=== PATIENT | male | born 1960 | race Caucasian/White ===

== ENCOUNTER 2019-03-05 22:00 | Emergency (ER) | payer MEDICARE, MEDICAID ==
[~2019-03-05] VITALS: Ht 175.3 cm; Wt 92.0 kg
[~2019-03-05 22:00] MED LIST: BACTRIM DS1 TAB PO; BACTROBAN2 % EX; DOESN'T KNOW MEDS; LORTAB 10 PO; LORTAB 5 OR; OMEPRAZOLE20 MG PO; OMEPRAZOLE40 MG; OMEPRAZOLE40 MG PO; PAXIL20 MG OR; PERCOCET 5/325M1 TAB OR; PERCOCET1 TAB OR; PRILOSEC40 MG PO; SUMATRIPTAN25 MG PO; TORADOL PO
[2019-03-05 23:08] LABS: HEMATOCRIT 43.9 % (39.0-50.0); HEMOGLOBIN 14.8 g/dl (14.0-18.0); IMMATURE GRANULOCYTES 0.3 % (0.0-5.0); MEAN CELL VOLUME 91.5 fL CALC (80.0-100.0); MEAN CORPUSCULAR HGB 30.8 pG CALC (26.0-32.0); MEAN CORPUSCULAR HGB CONC 33.7 g/L CALC (32.0-36.0); NEUT# 3.7 thou/uL (1.82-7.42); RED BLOOD COUNT 4.8 mill/uL (4.70-6.10); URINE BILIRUBIN - DIPSTICK NEGATIVE (NEGATIVE); URINE BLOOD DIPSTICK NEGATIVE (NEGATIVE); URINE COLOR YELLOW; URINE GLUCOSE - DIPSTICK NEGATIVE (NEGATIVE); URINE KETONE NEGATIVE (NEGATIVE); URINE LEUK ESTERASE NEGATIVE (NEGATIVE); URINE NITRITE - DIPSTICK NEGATIVE (Negative); URINE PROTEIN - DIPSTICK NEGATIVE (NEG-TRACE); URINE UROBILINOGEN - DIPSTICK 0.2 E.U./dL (0.2)
[2019-03-05 23:23] LABS: ALBUMIN 4.4 g/dL (3.2-5.0); ALKALINE PHOSPHATASE 88 u/l (38-126); AMYLASE 52 u/l (30-110); ANION GAP 14 (6-22 (CALC)); BUN 14 mg/dL (9-20); BUN/CREATININE RATIO 16 (12-20 (CALC)); CARBON DIOXIDE 25 mmol/l (22-30); CHLORIDE 106 mmol/l (95-108); CREATININE 0.8 mg/dL (0.7-1.3); GFR > 60 ML/MIN (>=60 (CALC)); GFR FOR AFR.AMER. > 60 ML/MIN (>=60 (CALC)); LIPASE 99 u/l (23-300); POTASSIUM 4.1 mmol/l (3.5-5.1); SGOT/AST 25 u/l (17-59); SODIUM 141 mmol/l (137-146); TOTAL PROTEIN 6.9 g/dL (6.3-8.2)
[2019-03-05 23:26] LABS: BILIRUBIN, TOTAL 0.6 mg/dL (0.0-1.4)
[2019-03-06] MEDS ORDERED: AMBIEN5 MG PO (00:35)
[2019-03-06] MEDS ORDERED: METRONIDAZOL500 MG PO (01:44)
[2019-03-06] MEDS ORDERED: Levaquin PO (01:44)
[2019-03-06 03:35] VITALS: BP 142/90
== END 2019-03-06 03:32 | disposition home or self-care (01) ==
LOC: ED 22:00
PROVIDERS: Emergency Medicine
DX: K52.9 Noninfective gastroenteritis and colitis, unspecified (principal); R10.31 Right lower quadrant pain; F17.210 Nicotine dependence, cigarettes, uncomplicated; Z72.89 Other problems related to lifestyle
CPT/HCPCS: J1956; Q9967

== ENCOUNTER 2022-12-19 06:22 | Emergency (ER) | payer MEDICARE, MEDICAID ==
[2022-12-19] VITALS (8 sets, daily range): BP systolic 131–156; BP diastolic 82–94
[~2022-12-19] VITALS: Ht 175.3 cm; Wt 81.0 kg
[~2022-12-19 06:22] MED LIST changes: +AMBIEN5 MG PO; +Levaquin PO; +METRONIDAZOL500 MG PO
[2022-12-19] MEDS ORDERED: ASPIRIN81 MG PO (06:52)
[2022-12-19] MEDS ORDERED: CYCLOBENZAPRINE10 MG PO (09:37)
[2022-12-19] MEDS ORDERED: TRAMADOL HYDROC50 M1 PO (09:37)
== END 2022-12-19 10:02 | disposition home or self-care (01) ==
LOC: ED 06:22
DX: S19.9XXA Unspecified injury of neck, initial encounter (principal); F17.200 Nicotine dependence, unspecified, uncomplicated; W17.89XA Other fall from one level to another, initial encounter; Y93.89 Activity, other specified; Y92.009 Unspecified place in unspecified non-institutional (private) residence as the place of occurrence of the external cause

== ENCOUNTER 2023-08-24 11:19 | Emergency (ER) | payer MEDICARE, MEDICAID ==
[2023-08-24] VITALS (8 sets, daily range): BP systolic 150–178; BP diastolic 87–113
[~2023-08-24] VITALS: Ht 175.3 cm; Wt 81.0 kg
[~2023-08-24 11:19] MED LIST changes: +ASPIRIN81 MG PO; +CYCLOBENZAPRINE10 MG PO; +TRAMADOL HYDROC50 M1 PO
[2023-08-24 11:47] LABS: BASO% 0.3 % (0-3); EOS% 0.8 % (0-8); HEMATOCRIT 44.4 % (39.0-50.0); HEMOGLOBIN 14.8 g/dl (14.0-18.0); IMMATURE GRANULOCYTES 0.2 % (0.0-5.0); LYMPH% 15.4 % (15-41); MEAN CELL VOLUME 90.8 fL CALC (80.0-100.0); MEAN CORPUSCULAR HGB 30.3 pG CALC (26.0-32.0); MEAN CORPUSCULAR HGB CONC 33.3 g/dL CAL (32.0-36.0); MONO% 7.3 % (2-13); NEUT# 8.79 thou/uL (1.82-7.42); RED BLOOD COUNT 4.89 mill/uL (4.70-6.10); RED CELL DISTRI WIDTH 13.4 % (11.5-15.5)
[2023-08-24] MEDS ORDERED: TRAZODONE100 MG PO ×2 (11:48→15:18)
[2023-08-24 12:12] LABS: ALBUMIN 4.8 g/dL (3.2-5.0); ALKALINE PHOSPHATASE 120 u/l (38-126); ANION GAP 16 (6-22 (CALC)); BUN 26 mg/dL (8-23); BUN/CREATININE RATIO 24 (12-20 (CALC)); CARBON DIOXIDE 20 mmol/l (22-30); CHLORIDE 106 mmol/l (95-108); CREATININE 1.1 mg/dL (0.7-1.3); GFR FOR AFR.AMER. > 60 ML/MIN (>=60 (CALC)); GFR OTHER RACES > 60 ML/MIN (>=60 (CALC)); POTASSIUM 4.7 mmol/l (3.5-5.1); SGOT/AST 39 u/l (19-48); SODIUM 137 mmol/l (137-146); TOTAL PROTEIN 7.9 g/dL (6.3-8.2)
[2023-08-24 12:14] LABS: BILIRUBIN, TOTAL 0.9 mg/dL (0.2-1.3)
[2023-08-24] MEDS ORDERED: DOXY-CAPS100 MG PO ×2 (13:00→15:18)
[2023-08-24] MEDS ORDERED: PREDNISONE50 MG PO ×2 (13:00→15:18)
[2023-08-24] MEDS ORDERED: VENTOLIN HFA108 MCG PO ×2 (13:00→15:18)
== END 2023-08-24 14:03 | disposition home or self-care (01) ==
LOC: ED 11:19
PROVIDERS: Family Medicine
DX: J06.9 Acute upper respiratory infection, unspecified (principal); F17.200 Nicotine dependence, unspecified, uncomplicated; Z20.822 Contact with and (suspected) exposure to COVID-19

== ENCOUNTER 2024-02-28 11:25 | Emergency (ER) | payer MEDICARE, MEDICAID ==
[~2024-02-28] VITALS: Ht 175.3 cm; Wt 79.4 kg
[~2024-02-28 11:25] MED LIST changes: +DOXY-CAPS100 MG PO; +PREDNISONE50 MG PO; +TRAZODONE100 MG PO; +VENTOLIN HFA108 MCG PO
[2024-02-28] MEDS ORDERED: KETOROLAC TROMETHAMINE 30 MG/ML SDV IV ONE (12:20)
[2024-02-28] MEDS ORDERED: methylPREDNISolone SODIUM SUCC 125 MG/2 ML SDV IV ONE (12:20)
[2024-02-28 12:31] VITALS: BP 181/108
[2024-02-28 12:45] VITALS: BP 166/109
[2024-02-28 13:01] VITALS: BP 182/135
[2024-02-28] MEDS ORDERED: oxyCODONE 5MG/ ACETAMINOPHEN 325MG TAB PO ONE (13:05)
[2024-02-28 13:16] VITALS: BP 165/110
[2024-02-28] MEDS ORDERED: PERCOCET 5/325M1 TAB PO (13:29)
[2024-02-28 13:47] VITALS: BP 165/89
== END 2024-02-28 13:50 | disposition home or self-care (01) ==
LOC: ED 11:25
DX: G89.18 Other acute postprocedural pain (principal); K08.409 Partial loss of teeth, unspecified cause, unspecified class; F17.210 Nicotine dependence, cigarettes, uncomplicated

== ENCOUNTER 2024-03-18 11:11 | Emergency (ER) | payer MEDICARE, MEDICAID ==
[~2024-03-18] VITALS: Ht 175.3 cm; Wt 77.0 kg
[~2024-03-18 11:11] MED LIST changes: +PERCOCET 5/325M1 TAB PO
[2024-03-18] MEDS ORDERED: Diph, Acellular Pertussis, Tet 0.5 ML/VIAL (Tdap) SDV IM ONE (11:25)
[2024-03-18 11:32] VITALS: BP 152/98
[2024-03-18 12:01] VITALS: BP 152/98
== END 2024-03-18 12:00 | disposition home or self-care (01) ==
LOC: ED 11:11
PROC: 0HQGXZZ Repair Left Hand Skin, External Approach (ICD-10-PCS; principal; 2024-03-18)
DX: S61.412A Laceration without foreign body of left hand, initial encounter (principal); S51.812A Laceration without foreign body of left forearm, initial encounter; F17.200 Nicotine dependence, unspecified, uncomplicated; W26.0XXA Contact with knife, initial encounter